=== PATIENT | female | born 1965 | race Caucasian/White ===

== ENCOUNTER 2016-10-16 07:43 | Observation (INO) | payer SELFPAY ==
[~2016-10-16] VITALS: Ht 160 cm; Wt 95.0 kg
[2016-10-16 07:44] VITALS: BP 202/88; PULSE 96; RESP 18; TEMP 97.2; O2SAT 97
[2016-10-16 07:56] VITALS: BP 167/81; PULSE 91; RESP 25; O2SAT 95
[2016-10-16] MEDS ORDERED: ONDANSETRON HCL 4 MG/2 ML VIAL ONE (08:02)
[2016-10-16 08:09] VITALS: O2SAT 95
--- NOTE | 2016-10-16 08:13 | PD ---
HPI Chief Complaint: Abdominal Pain Time Seen by Provider: 08:07 Travel History International Travel<30 days: No Contact w/Intl Traveler<30days: No Traveled to known affect area: No History of Present Illness HPI 51-year-old female with previous history of ventral hernia status post surgery multiple times in [place], presents to the ER today with sudden onset at 3 AM of upper abdominal pain where her hernia site is. She has been nauseous and vomiting. Reports a 10 out of 10. She denies any other issues. Modifying Factors: None Associated Signs & Symptoms: Upper abdominal pain with nausea and vomiting Risk Factors: Ventral hernia [facility] Social History Tobacco Use: No Allergies-Medications (Allergen,Severity, Reaction): Coded Allergies: No Known Allergies (Unverified , 10/16/16) Review of Systems Except as stated in HPI: all other systems reviewed are Neg Physical Exam Narrative GENERAL: Well-developed middle age white female patient currently in moderate distress. Awake and oriented 3. SKIN: Focused skin assessment warm/dry. HEAD: Atraumatic. Normocephalic. EYES: Pupils equal and round. No scleral icterus. No injection or drainage. ENT: No nasal bleeding or discharge. Mucous membranes pink and moist. NECK: Trachea midline. No JVD. CARDIOVASCULAR: Regular rate and rhythm. No murmur appreciated. RESPIRATORY: No accessory muscle use. Clear to auscultation. Breath sounds equal bilaterally. GASTROINTESTINAL: Abdomen soft, there is a palpable ventral hernia above the umbilicus which is fairly tender to palpation about the size of a softball, mildly distended. Hepatic and splenic margins not palpable. MUSCULOSKELETAL: No obvious deformities. No clubbing. No cyanosis. No edema. NEUROLOGICAL: Awake and alert. No obvious cranial nerve deficits. Motor grossly within normal limits. Normal speech. PSYCHIATRIC: Appropriate mood and affect; insight and judgment normal. Data Data Last Documented VS Vital Signs Date Time Temp Pulse Resp B/P Pulse Ox O2 Delivery O2 Flow Rate FiO2 10/16/16 08:48 20 10/16/16 08:09 95 Room Air 10/16/16 07:56 91 167/81 10/16/16 07:44 97.2 Orders Ondansetron Inj (Zofran Inj) (10/16/16 08:02) Complete Blood Count With Diff (10/16/16 08:07) Comprehensive Metabolic Panel (10/16/16 08:07) Lipase (5/10/17 08:07) Prothrombin Time / Inr (Pt) (10/16/16 08:07) Act Partial Throm Time (Ptt) (10/16/16 08:07) Iv Access Insert/Monitor (10/16/16 08:07) Ecg Monitoring (10/16/16 08:07) Oximetry (10/16/16 08:07) Sodium Chloride 0.9% Flush (Ns Flush) (10/16/16 08:15) Hydromorphone Pf Inj (Dilaudid Pf Inj) (10/16/16 08:15) Ondansetron Inj (Zofran Inj) (10/16/16 08:15) Ng Gastric Tube Insert/Monitor (10/16/16 09:07) Abdomen, Flat & Upright (10/16/16 09:09) Ct Abd/Pel W Iv Contrast(Rout) (10/16/16 09:51) Consult Jimmy Nfs (10/16/16 ) Iohexol 350 Inj (Omnipaque 350 Inj) (10/16/16 10:41) Admit Order (Ed Use Only) (10/16/16 10:45) Labs Laboratory Tests Test 10/16/16 08:20 White Blood Count 14.1 TH/MM3 Red Blood Count 4.96 MIL/MM3 Hemoglobin 14.3 GM/DL Hematocrit 43.9 % Mean Corpuscular Volume 88.5 FL Mean Corpuscular Hemoglobin 28.8 PG Mean Corpuscular Hemoglobin 32.6 % Concent Red Cell Distribution Width 13.8 % Platelet Count 364 TH/MM3 Mean Platelet Volume 8.8 FL Neutrophils (%) (Auto) 84.4 % Lymphocytes (%) (Auto) 11.3 % Monocytes (%) (Auto) 3.8 % Eosinophils (%) (Auto) 0.2 % Basophils (%) (Auto) 0.3 % Neutrophils # (Auto) 11.9 TH/MM3 Lymphocytes # (Auto) 1.6 TH/MM3 Monocytes # (Auto) 0.5 TH/MM3 Eosinophils # (Auto) 0.0 TH/MM3 Basophils # (Auto) 0.0 TH/MM3 CBC Comment DIFF FINAL Differential Comment Prothrombin Time 10.6 SEC Prothromb Time International 1.0 RATIO Ratio Activated Partial 24.5 SEC Thromboplast Time Sodium Level 141 MEQ/L Potassium Level 4.0 MEQ/L Chloride Level 105 MEQ/L Carbon Dioxide Level 23.0 MEQ/L Anion Gap 13 MEQ/L Blood Urea Nitrogen 15 MG/DL Creatinine 0.76 MG/DL Estimat Glomerular Filtration 81 ML/MIN Rate Random Glucose 169 MG/DL Calcium Level 9.2 MG/DL Total Bilirubin 0.6 MG/DL Aspartate Amino Transf 15 U/L (AST/SGOT) Alanine Aminotransferase 22 U/L (ALT/SGPT) Alkaline Phosphatase 97 U/L Total Protein 8.6 GM/DL Albumin 3.7 GM/DL Lipase 120 U/L [facility] Medical Decision Making Medical Screen Exam Complete: Yes Emergency Medical Condition: Yes Medical Record Reviewed: Yes Interpretation(s) Laboratory Tests Test 10/16/16 08:20 White Blood Count 14.1 TH/MM3 (4.0-11.0) Neutrophils (%) (Auto) 84.4 % (16.0-70.0) Neutrophils # (Auto) 11.9 TH/MM3 (1.8-7.7) Estimat Glomerular Filtration 81 ML/MIN (>89) Rate Random Glucose 169 MG/DL (74-106) Total Protein 8.6 GM/DL (6.4-8.2) Last 24 hours Impressions Abdomen/Pelvis CT 10/16/16950 Signed Impressions: Service Date/Time: Sunday, October 16, 2016 10:19 - CONCLUSION: 1. Abdominal wall rounded seroma measuring 5.2 x 7.8 cm. 2. Bulging of the abdominal wall where patient has had previous surgery/mesh placement but no hernia identified. 3. No small bowel obstruction. 4. Left-sided ovarian calcifications, possible dermoid. 5. Mild hepatic steatosis. Selvin Miles MD Abdomen X-Ray 10/16/1609 Signed Impressions: Service Date/Time: Sunday, October 16, 2016 09:25 - CONCLUSION: Unremarkable abdomen. Selvin Miles MD Differential Diagnosis Ventral herniarule out incarceration versus obstruction versus reducible Narrative Course Initially, I had attempted to reduce the hernia and but it does not reduce. Further x-rays and CAT scans have been done. Case was discussed with Dr. Kaur. CAT scan shows a seroma and Dr. Kaur at this point is agreeable to admit the patient as an observation. Diagnosis Primary Impression: Ventral hernia Additional Impression: Abdominal wall seroma Admitting Information Admitting Physician Requests: Admit Herminia Daniels MD October 16, 2016 08:13
[2016-10-16] MEDS ORDERED: SODIUM CHLORIDE 0.9% FLUSH 10 ML FLUSH IV FLUSH PRN ×2 (08:15→12:00)
[2016-10-16] MEDS ORDERED: HYDROmorphone HCL PF 1 MG/ML VIAL IVS ONE (08:15)
[2016-10-16] MEDS ORDERED: ONDANSETRON HCL 4 MG/2 ML VIAL IV PUSH ONE (08:15)
[2016-10-16 08:36] LABS: AUTOMATED NEUTROPHIL # 11.9 TH/MM3 (1.8-7.7); BASOPHIL % 0.3 % (0.0-2.0); EOSINOPHIL % 0.2 % (0.0-4.0); HEMATOCRIT 43.9 % (35.0-46.0); HEMO FLAGS DIFF FINAL; LYMPH % 11.3 % (9.0-44.0); LYMPHOCYTE # 1.6 TH/MM3 (1.0-4.8); MEAN CELL VOLUME 88.5 FL (80.0-100.0); MEAN CORPUSCULAR HEMOGLOBIN 28.8 PG (27.0-34.0); MEAN CORPUSCULAR HGB CONC 32.6 % (32.0-36.0); MONO % 3.8 % (0.0-8.0); NEUT % 84.4 % (16.0-70.0); PLATELET COUNT 364 TH/MM3 (150-450); RED BLOOD COUNT 4.96 MIL/MM3 (4.00-5.30); RED CELL DISTRIBUTION WIDTH 13.8 % (11.6-17.2); WHITE BLOOD COUNT 14.1 TH/MM3 (4.0-11.0)
[2016-10-16 08:45] LABS: APTT (PATIENT) 24.5 SEC (24.3-30.1); PROTHROMBIN TIME - PATIENT 10.6 SEC (9.8-11.6)
[2016-10-16 08:56] LABS: ALT (GPT) 22 U/L (10-53); ANION GAP 13 MEQ/L (5-15); AST (GOT) 15 U/L (15-37); BLOOD UREA NITROGEN 15 MG/DL (7-18); CHLORIDE 105 MEQ/L (98-107); GLOMERULAR FILTRATION RATE 81 ML/MIN (>89); SODIUM (NA) 141 MEQ/L (136-145)
[2016-10-16 08:58] LABS: ALKALINE PHOSPHATASE 97 U/L (45-117); TOTAL BILIRUBIN ADULT 0.6 MG/DL (0.2-1.0)
--- NOTE | 2016-10-16 09:50 | RADRPT ---
EXAM DATE/TIME: 10/16/2016 09:25 [facility] COMPARISON: No previous studies available for comparison. INDICATIONS : Severe abdomen pain with distention. MEDICAL HISTORY : Multiple bowel obstruction. Hernia SURGICAL HISTORY : Bowel resections, hernia repair, Maher rods. ENCOUNTER: Initial ACUITY: 1 day PAIN SCORE: 10/10 LOCATION: Bilateral abdomen. FINDINGS: Supine and upright views of the abdomen were performed. Previous mesh placement. The abdominal bowel gas pattern is normal. No air fluid levels are seen. No abnormal masses, calcifications, or organo megaly is seen. The visualized lower lungs are clear. No evidence of free intraperitoneal gas. Scol iotic mikael noted. CONCLUSION: Unremarkable abdomen. Selvin Miles MD on October 16, 2016 at 9:48 Board Certified Radiologist. This report was verified electronically.
[2016-10-16] MEDS ORDERED: IOHEXOL 350 MG/ML 10 ML VIAL (for RAD DIAG) IV ONE (10:41)
--- NOTE | 2016-10-16 10:47 | RADRPT ---
EXAM DATE/TIME: 10/16/2016 10:19 [facility] COMPARISON: No previous studies available for comparison. INDICATIONS : Patient has histoory of hernia, sudden onset of abdominal pain. IV CONTRAST: 97 cc Omnipaque 350 (iohexol) IV Injection Site: Lt AC Lot: [id number] Exp Date: Jul 2019 Lot: Exp Date : ORAL CONTRAST: No oral contrast ingested. RADIATION DOSE: 22.0 CTDIvol (mGy) MEDICAL HISTORY : Hernia. SURGICAL HISTORY : hernia repair x 4 ENCOUNTER: Initial ACUITY: 1 day PAIN SCALE: 10/10 LOCATION: lower quadrant TECHNIQUE: Volumetric scanning of the abdomen and pelvis was performed. Using automated exposure control and ad justment of the mA and/or kV according to patient size, radiation dose was kept as low as reasonably achievable to obtain optimal diagnostic quality images. FINDINGS: LOWER LUNGS: The visualized lower lungs are clear. LIVER: Decreased attenuation without lesion. There is no dilation of the biliary tree. No calcified gallst ones. SPLEEN: Normal size without lesion. PANCREAS: Within normal limits. KIDNEYS: Normal in size and shape. There is no mass, stone or hydronephrosis. ADRENAL GLANDS: Within normal limits. VASCULAR: There is no aortic aneurysm. BOWEL/MESENTERY: No significant dilatation of bowel loops. No obstruction.. There is no free intraperitoneal air or f luid. ABDOMINAL WALL: There is some bulging of the lower abdominal wall where previous mesh has been placed. No abdominal w all hernia. Prominent rounded fluid collection along the anterior abdominal wall consistent with sero ma measuring 5.2 x 7.8 cm. RETROPERITONEUM: There is no lymphadenopathy. BLADDER: No wall thickening or mass. REPRODUCTIVE: Calcification left ovary. INGUINAL: There is no lymphadenopathy or hernia. MUSCULOSKELETAL: Scoliosis. CONCLUSION: 1. Abdominal wall rounded seroma measuring 5.2 x 7.8 cm. 2. Bulging of the abdominal wall where patient has had previous surgery/mesh placement but no hernia identified. 3. No small bowel obstruction. 4. Left-sided ovarian calcifications, possible dermoid. 5. Mild hepatic steatosis. Selvin Miles MD on October 16, 2016 at 10:39 Board Certified Radiologist. This report was verified electronically.
[2016-10-16] MEDS ORDERED: oxyCODONE/ACETAMINOPHEN 5 MG/325 MG TAB PO PRN (12:00)
[2016-10-16] MEDS: SODIUM CHLOR 0.9% 1000 ML INJ 1,000 ML IV SCH ×2 (12:20→21:43)
[2016-10-16] MEDS: MORPHINE SULFATE 4 MG/ML INJ IV PRN ×3 (12:21→19:12)
[2016-10-16] MEDS: PANTOPRAZOLE SODIUM 40 MG VIAL IV SCH (12:21)
[2016-10-16] MEDS: SODIUM CHLORIDE 0.9% FLUSH 10 ML FLUSH IV FLUSH SCH ×2 (12:21→21:00)
[2016-10-16] MEDS: ONDANSETRON HCL 4 MG/2 ML VIAL IV PUSH PRN ×2 (15:22→21:23)
[2016-10-16] MEDS: ENOXAPARIN SODIUM 30 MG/0.3 ML SYRINGE SQ SCH (15:23)
[2016-10-16 16:01] VITALS: BP 133/70; PULSE 77; RESP 14; TEMP 97.7; O2SAT 96
[2016-10-16] MEDS ORDERED: LORazepam 2 MG/ML VIAL IV PUSH PRN (17:00)
--- NOTE | 2016-10-16 17:30 | MH ---
cc: AMBER ONEIL MD DATE OF ADMISSION 10/16/2016 CHIEF COMPLAINT Abdominal pain. HISTORY OF PRESENT ILLNESS The patient is a 51-year-old female history of multiple ventral hernia repairs presents with nausea, vomiting, abdominal pain and diarrhea. She states the pain started suddenly at 03:00 a.m. this morning at her previous hernia repair site. She states it was 10/10, sharp, did have some diffuse radiation, better with lying still, worse with palpation and movement. She says also ___ pain medications improved the pain. She had associated multiple episodes of nausea, vomiting in the last several hours. She did note some diarrhea as well. She came to the emergency department and had a CT scan with concern for low grade bowel obstruction. No evidence of significant herniation was noted. Surgery was consulted. On my exam the patient confirms the above including abdominal pain. She stated she has had multiple episodes and this is a similar type of pain. She first had ventral hernia repaired in 2009 and had infection at this time, prolonged course. She had approximately four surgeries in total for repair of recurrent ventral hernia. She states she does have a bulge superior to the umbilicus. She states this has been there for some time since her last surgery. Her last surgery was in 2014. She states she has never had any bowel resection as result of her surgeries but she has had multiple ventral hernia repairs. PAST MEDICAL HISTORY The patient denies any medical history. PAST SURGICAL HISTORY As above, multiple ventral hernia repairs both laparoscopic and open. ALLERGIES The patient denies any allergies. MEDICATIONS The patient is on no medications. SOCIAL HISTORY The patient denies smoking, EtOH or IVDA. FAMILY HISTORY Dad with diabetes. Mother healthy. REVIEW OF SYSTEMS GENERAL: No acute distress. Denies headache. HEENT: Denies eye pain, ear pain. NECK: Denies swelling or pain. CARDIOVASCULAR: Denies palpitations or chest pain. RESPIRATORY: Denies cough or wheeze. GASTROINTESTINAL: Complains of nausea, vomiting, abdominal pain. MUSCULOSKELETAL: Denies arthralgia, myalgias. NEUROLOGIC: Denies numbness or tingling. PSYCHIATRIC: Appropriate mood and affect. GENITOURINARY: Denies dysuria, hematuria. ENDOCRINE: Denies polyuria, polydipsia. PHYSICAL EXAMINATION GENERAL: The patient in no acute distress. VITAL SIGNS: Temperature 97.2, pulse 91, respirations 20, blood pressure 167/81, pulse ox is 95% on room air. HEENT: PERRLA, EOMI. NECK: Supple. Trachea midline. LUNGS: Clear to auscultation bilaterally. CARDIOVASCULAR: S1-S2. Regular rate and rhythm. ABDOMEN: Soft, positive tenderness to palpation supraumbilical. Supraumbilical firm, seroma-like mass noted. No rebound, no guarding. Healed surgical scars. EXTREMITIES: Warm, well-perfused. No edema. SKIN: No obvious masses or lesions. PSYCHIATRIC: Good insight and good judgment. LABORATORY AND DIAGNOSTIC DATA WBC 14.1, hemoglobin 14.3, hematocrit 43.9, platelets 364. Sodium 141, potassium 4.0, chloride 105, BUN 15, creatinine 0.76, AST 15, ALT 22, alk phos 97, albumin 3.7, lipase 120. INR is 1.0. IMAGING CT reviewed by myself. Seroma 5.2 x 7.8 cm bulging abdominal wall at site of previous mesh surgery. No evidence of small bowel obstruction. Left side ovary calcifications. Mild hepatic steatosis. ASSESSMENT The patient is a 51-year-old with multiple surgeries, nausea, vomiting, some diarrhea, possible enteritis versus low grade bowel obstruction. PLAN After full clinical, radiologic, and laboratory workup the patient with above-named issues including abdominal pain. We will admit the patient for observation. Continue to monitor the patient. We will evaluate for evidence of recurrence of bowel obstruction at this time as the patient has had several in the past. Give IV fluids. P.o. diet, clears initially, we will advance as tolerated. Antiemetics and pain control. MD SAM Cortes/LYNNE /4:47 PM /5:11 PM
[2016-10-16 20:13] VITALS: BP 133/84; PULSE 73; RESP 20; TEMP 98.2; O2SAT 94
[2016-10-16 23:39] VITALS: BP 162/68; PULSE 75; RESP 20; TEMP 98; O2SAT 94
[2016-10-17] MEDS: MORPHINE SULFATE 4 MG/ML INJ IV PRN ×4 (00:21→12:23)
[2016-10-17 03:37] VITALS: BP 142/68; PULSE 75; RESP 19; TEMP 97.9; O2SAT 94
[2016-10-17] MEDS: ONDANSETRON HCL 4 MG/2 ML VIAL IV PUSH PRN (04:51)
[2016-10-17] MEDS: SODIUM CHLOR 0.9% 1000 ML INJ 1,000 ML IV SCH ×2 (04:52→12:47)
[2016-10-17 07:17] VITALS: BP 121/70; PULSE 66; RESP 18; TEMP 97.8; O2SAT 95
[2016-10-17] MEDS: PANTOPRAZOLE SODIUM 40 MG VIAL IV SCH (08:21)
[2016-10-17] MEDS: SODIUM CHLORIDE 0.9% FLUSH 10 ML FLUSH IV FLUSH SCH (08:21)
--- NOTE | 2016-10-17 10:52 | HHI.PR ---
Subjective Subjective Notes nausea vomiting last night pt is better this am. +flatus, +diarrhea Objective Vitals/I&O Vital Signs Date Time Temp Pulse Resp B/P Pulse Ox O2 Delivery O2 Flow Rate FiO2 10/17/16 07:17 97.8 66 18 121/70 95 10/16/16 08:09 Room Air Cardiovascular: Regular Lungs: Clear Abdomen: Other (soft +palpable seroma, no evidence of recurrent hernia, mild ttp) A/P Assessment and Plan hx of multiple surgeries, N/V/ Abd pain- possible ileus verse enteritis PLAN advance diet pain control with po meds nausea meds plan for d/c home later today Brenden Kaur MD October 17, 2016 10:52
[2016-10-17 12:03] VITALS: BP 134/81; PULSE 78; RESP 18; TEMP 98.9; O2SAT 95
[2016-10-17] MEDS: ENOXAPARIN SODIUM 30 MG/0.3 ML SYRINGE SQ SCH (14:49)
[2016-10-17 15:25] VITALS: BP 133/65; PULSE 76; RESP 18; TEMP 97.8; O2SAT 95
== END 2016-10-17 19:44 | disposition home or self-care (01) ==
LOC: NEPC 07:43 → NEDA 10:49 → NEPFCDU 13:20
PROVIDERS: ADMIT Surgery; ATTEND Surgery
DX: R10.9 Unspecified abdominal pain (principal); R11.2 Nausea with vomiting, unspecified; R19.7 Diarrhea, unspecified; Z98.890 Other specified postprocedural states; Z90.49 Acquired absence of other specified parts of digestive tract
CPT/HCPCS: 74020; 74177; 80053; 83690; 85025; 85610; 85730; 96374; 96375; 99285; C9113; G0378; J1170; J1650; J2060; J2270; J2405; J7030; Q9967